=== PATIENT | male | born 1940 | race Hispanic/Latino ===

== ENCOUNTER 2020-04-10 15:19 | Inpatient (IN) | payer MEDICARE ==
[~2020-04-10] VITALS: Ht 157.5 cm; Wt 63.5 kg
[2020-04-10 16:28] LABS: BASOPHILS % (AUTO) 1.1 % (0.0-5.0); EOSINOPHILS % (AUTO) 1.7 % (0.0-8.0); LYMPHOCYTES % (AUTO) 15.1 % (21.0-51.0); MEAN CORPUSCULAR HEMOGLOBIN 20.4 pg (27.0-33.0); MEAN CORPUSCULAR HGB CONC 27.8 g/dL (32.0-36.0); MEAN CORPUSCULAR VOLUME 73.2 fL (79-99); MONOCYTES % (AUTO) 6.7 % (3.0-13.0); NEUTROPHILS % (AUTO) 75.1 % (40.0-77.0); NUCLEATED RED BLOOD CELLS 0.3 % (0.0-0.19); PLATELET COUNT (AUTO) 286 K/uL (130-400); RED BLOOD CELL COUNT(AUTO) 2.65 MIL/uL (4.50-6.20); RED CELL DISTRIBUTION WIDTH 20.2 % (11.0-15.5); WHITE BLOOD COUNT (AUTO) 9.7 K/uL (4.8-10.8)
[2020-04-10 16:37] LABS: CREATININE 0.7 mg/dL (0.5-1.5); POTASSIUM 3.4 mmol/L (3.5-5.1)
[2020-04-10 16:41] LABS: HEMATOCRIT 19.4 % (42-54); INR 0.91 (0.85-1.15); PARTIAL THROMBOPLASTIN TIME 23.2 SEC (26.3-35.5); PROTHROMBIN TIME 9.9 SEC (9.6-11.6)
[2020-04-10 16:42] LABS: ALBUMIN 3.1 g/dL (3.5-5.0); BILIRUBIN,TOTAL 0.3 mg/dL (0.2-1.0); TOTAL PROTEIN, SERUM 7.1 g/dL (6.0-8.3)
[2020-04-10 16:56] LABS: B-TYPE NATRIURETIC PEPTIDE 85 pg/mL (0-100)
[2020-04-10] MEDS ORDERED: PANTOPRAZOLE 40 MG/VIAL ONE (17:12)
[2020-04-10 17:40] LABS: APPEARANCE,URINE Clear (CLEAR); BILIRUBIN,URINE Negative (NEGATIVE); COLOR,URINE Yellow (YELLOW); GLUCOSE, URINE (UA) TRACE mg/dL (NEGATIVE); KETONES,URINE Negative (NEGATIVE); LEUKOCYTE ESTERASE ,URINE Negative (NEGATIVE); NITRATE,URINE Negative (NEGATIVE); OCCULT BLOOD,URINE Negative (NEGATIVE); PROTEIN,URINE Trace mg/dL (NEGATIVE)
[2020-04-10 17:59] LABS: BACTERIA,URINE Rare /HPF (None Seen); RBC,URINE 0-1 /HPF (0-1); WBC,URINE 0-1 /HPF (0-1)
[2020-04-10 18:01] LABS: MUCUS,URINE Few LPF (None Seen); SQUAMOUS EPITHELIAL CELL,UR Few /HPF (0-2)
[2020-04-10 20:00] VITALS: BP 145/71
[2020-04-10] MEDS ORDERED: METF-446 PO (20:17)
[2020-04-10] MEDS ORDERED: ONDANSETRON HCL 4 MG/2 ML VIAL IV PRN (20:30)
[2020-04-10] MEDS ORDERED: ACETAMINOPHEN 325 MG TAB PO PRN ×2 (20:30)
[2020-04-10] MEDS ORDERED: LACTULOSE 20 GM/30 ML UDCUP PO PRN (20:30)
[2020-04-10] MEDS ORDERED: MORPHINE SULFATE 2 MG/ML 1ML SYG IV PRN (20:30)
[2020-04-10] MEDS ORDERED: NITROGLYCERIN 0.4 MG SL TAB SL PRN (20:30)
[2020-04-10] MEDS: SODIUM CHLORIDE 0.9% 1000ML 1,000 ML IV SCH (20:30)
[2020-04-10] MEDS ORDERED: ZOLPIDEM TARTRATE 5 MG TAB PO PRN (20:30)
[2020-04-10] MEDS ORDERED: LIDOCAINE HCL-MPF 1% 2ML VIAL IV PRN (20:45)
[2020-04-10] MEDS ORDERED: POTASSIUM CHLORIDE 10% ELIXIR 20 MEQ/15 ML UDCUP PO PRN (20:45)
[2020-04-10 20:56] LABS: HEMOGLOBIN A1C 6.5 % (4.0-6.0)
[2020-04-10] MEDS: INSULIN HUMULIN R 100 UNIT/ML 3ML SQ SCH (21:00)
[2020-04-10 21:03] LABS: HEMATOCRIT 18.2 % (42-54)
--- NOTE | 2020-04-10 23:57 | NUR ---
PATIENT RECEIVED FROM [facility]LEED/ANEMIA WITH HGB 5.4. PATIENT ARRIVED TO ROOM 1954, AAOX3 WITH STEP-SON AT BEDSIDE. POC DISCUSSED WITH PATIENT AND FAMILY. PATIENT IS AWARE OF PLAN FOR BLOOD TRANSFUSION TODAY. INSTRUCTED ON STRICT BEDREST. CALL DIAZ PLACED WITHIN REACH, BED ALARM ON. MEDICAL-TELE WITH ST [address] AT TIME OF ADMISSION. 1 UNIT OF PRBC INFUSING WITH NO COMPLICATIONS NOTED. WILL CONT TO MONITOR CLOSELY.
[2020-04-11 00:04] VITALS: BP 133/58
[2020-04-11] MEDS ORDERED: ATOR40TA69 PO (00:04)
[2020-04-11] MEDS ORDERED: OMEP40CA13 PO (00:04)
[2020-04-11] MEDS ORDERED: SENN8.6T32 PO (00:04)
[2020-04-11] MEDS ORDERED: AEC81 PO (00:04)
[2020-04-11] MEDS ORDERED: TAMS-1 PO (00:04)
[2020-04-11] MEDS ORDERED: AMLO-96 PO (00:04)
[2020-04-11 03:19] LABS: BASOPHILS % (AUTO) 1.1 % (0.0-5.0); EOSINOPHILS % (AUTO) 2.2 % (0.0-8.0); HEMATOCRIT 22.8 % (42-54); LYMPHOCYTES % (AUTO) 24.7 % (21.0-51.0); MEAN CORPUSCULAR HEMOGLOBIN 21.5 pg (27.0-33.0); MEAN CORPUSCULAR HGB CONC 29.8 g/dL (32.0-36.0); MEAN CORPUSCULAR VOLUME 71.9 fL (79-99); MONOCYTES % (AUTO) 7.9 % (3.0-13.0); NEUTROPHILS % (AUTO) 63.8 % (40.0-77.0); NUCLEATED RED BLOOD CELLS 0.4 % (0.0-0.19); PLATELET COUNT (AUTO) 259 K/uL (130-400); RED BLOOD CELL COUNT(AUTO) 3.17 MIL/uL (4.50-6.20); RED CELL DISTRIBUTION WIDTH 19.3 % (11.0-15.5); WHITE BLOOD COUNT (AUTO) 7.6 K/uL (4.8-10.8)
[2020-04-11] MEDS: PANTOPRAZOLE SODIUM 80 MG in NS 100ML IVP SCH ×2 (03:38→21:42)
--- NOTE | 2020-04-11 04:06 | NUR ---
HGB 6.8 2ND UNIT OF PRBC INITIATED PER ORDERS.
[2020-04-11 04:08] VITALS: BP 132/57
--- NOTE | 2020-04-11 07:00 | NUR ---
2ND. UNIT OF PRBS NOW COMPLETE, NO ADVERSE REACTION NOTED .
[2020-04-11] MEDS: INSULIN HUMULIN R 100 UNIT/ML 3ML SQ SCH ×4 (07:16→21:00)
[2020-04-11 08:31] LABS: HEMATOCRIT 26.9 % (42-54)
[2020-04-11 08:37] VITALS: BP 135/66
[2020-04-11] MEDS ORDERED: PANTOPRAZOLE SODIUM 80 MG in SODIUM CHLORIDE 0.9% 100 ML IV SCH (09:00)
[2020-04-11 12:16] VITALS: BP 140/69
[2020-04-11] MEDS ORDERED: COMPOUND IV MISC 1 EACH IVSOLN MISC PRN (12:30)
--- NOTE | 2020-04-11 12:30 | NUR ---
DR. GARCIA RETURNED CALL. WILL DO EGD IN AM. REQUESTED COVIC TEST.
[2020-04-11 13:26] LABS: % IRON SATURATION 6.1 % (30-44)
[2020-04-11 15:47] VITALS: BP 130/58
--- NOTE | 2020-04-11 16:27 | NUR ---
DCP CM met with pt discussed dc plans. Pt is independent prior to admission, lives at home alone, dusty lives close by. Pt has a cane and provider around 14hrs/wk unsure with time. Denies any other equipments/services. Feels safe to go back home, still drives and visit spouse in [place], dusty able to assist with transportation and needs as necessary. DC plan to home once stable. CM to continue to follow up. Addendum: 04/11/20 at 1629 by TORO OWENS LVN CM Amended: Links added.
--- NOTE | 2020-04-11 17:16 | NUR ---
RT. NARE SWABBED FOR RAPID COVIC TEST. SEND TO LAB.
--- NOTE | 2020-04-11 17:44 | NUR ---
RAPID COVIC TEST JUST NOW REPORTED PRESUMPTIVE NEGATIVE.
--- NOTE | 2020-04-11 17:46 | NUR ---
SPOKE TO SON EARLIER RE: PAUL. STATES HE WILL BE IN LATER TODAY TO SIGN CONSENT HIS FATHER IS VERY HARD OF HEARING AND IS AFRAID HE MAY REFUSE IF HE DOESN'T UNDERSTAND.
[2020-04-11 19:00] VITALS: BP 128/64
--- NOTE | 2020-04-11 19:00 | NUR ---
CONSENT FOR EGD SIGNED BY SON.
--- NOTE | 2020-04-11 20:00 | NUR ---
assessment note patient awake, alert, ox3, no sob, no c/o pain at this time, no so, no c/o pain at this time, no family at bedside, ivf infusing well as ordered, teach patient plan of care , npo post midnite, expected outcome, patient verbalizes understanding via teach back, called form dr. robison office plan for egd tomorrow will be done by dr. lowe, supervisor feed house gabby squires r.n notifed per guidance secretary dinesh maya cna
[2020-04-11 20:22] LABS: HEMATOCRIT 26.2 % (42-54)
[2020-04-11] MEDS: ATORVASTATIN CALCIUM 40 MG TABLET PO SCH (21:39)
[2020-04-11] MEDS: SODIUM CHLORIDE 0.9% 1000ML 1,000 ML IV SCH (21:40)
[2020-04-12] VITALS (22 sets, daily range): BP systolic 102–156; BP diastolic 50–81
[2020-04-12 05:48] LABS: BASOPHILS % (AUTO) 1.2 % (0.0-5.0); CREATININE 0.5 mg/dL (0.5-1.5); EOSINOPHILS % (AUTO) 2.8 % (0.0-8.0); HEMATOCRIT 25.7 % (42-54); LYMPHOCYTES % (AUTO) 20.7 % (21.0-51.0); MEAN CORPUSCULAR HEMOGLOBIN 22.1 pg (27.0-33.0); MEAN CORPUSCULAR HGB CONC 30.4 g/dL (32.0-36.0); MEAN CORPUSCULAR VOLUME 72.8 fL (79-99); MONOCYTES % (AUTO) 8.8 % (3.0-13.0); NEUTROPHILS % (AUTO) 66.1 % (40.0-77.0); NUCLEATED RED BLOOD CELLS 0.3 % (0.0-0.19); PLATELET COUNT (AUTO) 259 K/uL (130-400); RED BLOOD CELL COUNT(AUTO) 3.53 MIL/uL (4.50-6.20); RED CELL DISTRIBUTION WIDTH 19.2 % (11.0-15.5); WHITE BLOOD COUNT (AUTO) 7.4 K/uL (4.8-10.8)
[2020-04-12 05:56] LABS: POTASSIUM 2.7 mmol/L (3.5-5.1)
--- NOTE | 2020-04-12 06:01 | NUR ---
ABNORMAL LAB k+ 2.[address] SAINI TO INFORM PATIENT OF ABNORMAL LAB
--- NOTE | 2020-04-12 06:15 | NUR ---
UPDATE LAB RESULT NO ANSWER FROM DR. SAINI, RE PAGE VIA ANSWERING SERVICE
[2020-04-12] MEDS ORDERED: PHARMACY COMMUNICATION MISC SCH (06:30)
[2020-04-12] MEDS: POTASSIUM CHLORIDE 10MEQ/100ML 100 ML IV PRN ×2 (06:34→09:51)
[2020-04-12] MEDS: INSULIN HUMULIN R 100 UNIT/ML 3ML SQ SCH ×4 (06:50→21:06)
--- NOTE | 2020-04-12 07:30 | NUR ---
DR. ARMSTRONG SPOKE TO MD VIA TELEPHONE REGARDING POTASSIUM 2.7 AND THAT IT WAS BEING COVERED WITH POTASSIUM IV PER POTASSIUM PROTOCOL. DR. ARMSTRONG REPLIED THAT HE WAS STILL GOING TO PERFORM SCHEDULED EGD TODAY.
[2020-04-12] MEDS ORDERED: PROPOFOL 10 MG/ML 20ML VIAL IV ONE ×2 (08:05)
[2020-04-12] MEDS ORDERED: POTASSIUM CHLORIDE 20 MEQ ERTAB PO SCH (08:30)
[2020-04-12] MEDS: MAGNESIUM 2GM PREMIX 50ML 50 ML IV SCH (09:55)
[2020-04-12] MEDS: TAMSULOSIN HCL 0.4 MG CAP.ER.24H PO SCH (10:05)
[2020-04-12] MEDS: IRON SUCROSE COMPLEX 100 MG in SODIUM CHLORIDE 0.9% 50 ML IV SCH (11:55)
--- NOTE | 2020-04-12 12:10 | NUR ---
DR. BILLIE BROWN ROUNDING AT THIS TIME. MD INFORMED OF UPPER GI EGD FINDINGS BY DR. ARMSTRONG THIS MORNING.
[2020-04-12] MEDS: SODIUM CHLORIDE 0.9% 1000ML 1,000 ML IV SCH (12:32)
[2020-04-12] MEDS ORDERED: DIATR MEGLU/DIATRIZOATE SODIUM 30 ML BOTTLE ONE (15:19)
[2020-04-12] MEDS ORDERED: IOHEXOL 350 MG/ML 100ML INFUS..BTL IV ONE (15:20)
[2020-04-12] MEDS: ATORVASTATIN CALCIUM 40 MG TABLET PO SCH (19:33)
--- NOTE | 2020-04-12 20:00 | NUR ---
assessment note patient awake, alert, ox3, no sob,no c/o pain at this time, teach patient plan of care and expected outcome , patient verbalizes understanding via teach back, call tran at reach
[2020-04-13 04:00] VITALS: BP 146/59
[2020-04-13 05:33] LABS: BASOPHILS % (AUTO) 1.1 % (0.0-5.0); EOSINOPHILS % (AUTO) 3.1 % (0.0-8.0); HEMATOCRIT 27.3 % (42-54); LYMPHOCYTES % (AUTO) 19.1 % (21.0-51.0); MEAN CORPUSCULAR HEMOGLOBIN 22.2 pg (27.0-33.0); MONOCYTES % (AUTO) 8.2 % (3.0-13.0); NEUTROPHILS % (AUTO) 68.3 % (40.0-77.0); PLATELET COUNT (AUTO) 269 K/uL (130-400); RED BLOOD CELL COUNT(AUTO) 3.69 MIL/uL (4.50-6.20); RED CELL DISTRIBUTION WIDTH 19.6 % (11.0-15.5); WHITE BLOOD COUNT (AUTO) 8.5 K/uL (4.8-10.8)
[2020-04-13] MEDS: INSULIN HUMULIN R 100 UNIT/ML 3ML SQ SCH ×4 (06:03→20:38)
[2020-04-13] MEDS: SODIUM CHLORIDE 0.9% 1000ML 1,000 ML IV SCH ×2 (06:04→19:38)
[2020-04-13 06:10] LABS: MAGNESIUM 1.8 mg/dL (1.80-2.40); POTASSIUM 3.6 mmol/L (3.5-5.1)
[2020-04-13] MEDS: POTASSIUM CHLORIDE 20 MEQ ERTAB PO PRN ×2 (06:38→09:02)
[2020-04-13] MEDS: MAGNESIUM 2GM PREMIX 50ML 50 ML IV SCH (06:39)
[2020-04-13 08:35] VITALS: BP 145/67
[2020-04-13] MEDS ORDERED: IRON SUCROSE COMPLEX 100 MG in SODIUM CHLORIDE 0.9% 50 ML IV SCH (09:00)
[2020-04-13] MEDS: PANTOPRAZOLE SODIUM 40 MG TABLET.DR PO SCH (09:02)
[2020-04-13] MEDS: TAMSULOSIN HCL 0.4 MG CAP.ER.24H PO SCH (09:02)
[2020-04-13] MEDS: IRON SUCROSE COMPLEX 100 MG in SODIUM CHLORIDE 0.9% 50 ML IV SCH (09:03)
[2020-04-13 11:45] VITALS: BP 130/59
[2020-04-13 17:12] VITALS: BP 135/52
[2020-04-13 20:23] VITALS: BP 136/65
[2020-04-13] MEDS: ATORVASTATIN CALCIUM 40 MG TABLET PO SCH (20:31)
[2020-04-13 23:33] VITALS: BP 146/64
[2020-04-14 03:41] VITALS: BP 130/60
[2020-04-14 05:55] LABS: HEMATOCRIT 27.8 % (42-54)
[2020-04-14] MEDS: INSULIN HUMULIN R 100 UNIT/ML 3ML SQ SCH ×4 (06:11→20:03)
[2020-04-14 06:14] LABS: POTASSIUM 3.8 mmol/L (3.5-5.1)
[2020-04-14] MEDS: POTASSIUM CHLORIDE 20 MEQ ERTAB PO PRN ×2 (06:36→09:44)
[2020-04-14 08:28] VITALS: BP 134/55
[2020-04-14] MEDS: TAMSULOSIN HCL 0.4 MG CAP.ER.24H PO SCH (10:05)
[2020-04-14] MEDS: PANTOPRAZOLE SODIUM 40 MG TABLET.DR PO SCH (10:05)
[2020-04-14] MEDS: IRON SUCROSE COMPLEX 100 MG in SODIUM CHLORIDE 0.9% 50 ML IV SCH (11:22)
[2020-04-14 12:30] VITALS: BP 125/64
[2020-04-14 16:07] VITALS: BP 139/61
[2020-04-14 20:01] VITALS: BP 136/56
[2020-04-14] MEDS: ATORVASTATIN CALCIUM 40 MG TABLET PO SCH (20:02)
[2020-04-14 23:52] VITALS: BP 132/56
[2020-04-15] MEDS: SODIUM CHLORIDE 0.9% 1000ML 1,000 ML IV SCH (00:30)
[2020-04-15 03:58] VITALS: BP 141/65
[2020-04-15] MEDS: INSULIN HUMULIN R 100 UNIT/ML 3ML SQ SCH ×2 (05:20→12:05)
[2020-04-15 05:53] LABS: HEMATOCRIT 29.1 % (42-54)
[2020-04-15 06:04] LABS: CREATININE 0.6 mg/dL (0.5-1.5); MAGNESIUM 1.9 mg/dL (1.80-2.40)
[2020-04-15] MEDS: MAGNESIUM 2GM PREMIX 50ML 50 ML IV SCH (06:22)
[2020-04-15 08:00] VITALS: BP 140/72
[2020-04-15] MEDS: PANTOPRAZOLE SODIUM 40 MG TABLET.DR PO SCH (08:36)
[2020-04-15] MEDS: TAMSULOSIN HCL 0.4 MG CAP.ER.24H PO SCH (08:36)
[2020-04-15] MEDS: IRON SUCROSE COMPLEX 100 MG in SODIUM CHLORIDE 0.9% 50 ML IV SCH (10:36)
[2020-04-15 12:00] VITALS: BP 128/56
[2020-04-15] MEDS ORDERED: POLY17PO4 PO (13:28)
[2020-04-15] MEDS ORDERED: FERR325T22 PO (13:28)
--- NOTE | 2020-04-15 15:45 | NUR ---
DISCHARGE DISCHARGE INSTRUCTIONS GIVEN TO PATIENTS REMI MESSINA OVER THE PHONE. PRESCRIPTIONS SENT TO [facility]. IV REMOVED. TELEPAK REMOVED.
== END 2020-04-15 15:45 | disposition home or self-care (01) | DRG 375 ==
LOC: EDH 15:19 → EDHIP 17:24 → 3AH 20:10 → 3DH 04-15 06:19
PROVIDERS: ADMIT Hospitalist; ATTEND Hospitalist
PROC: 30233N1 Transfusion of Nonautologous Red Blood Cells into Peripheral Vein, Percutaneous Approach (ICD-10-PCS; 2020-04-10)
PROC: 0DB68ZX Excision of Stomach, Via Natural or Artificial Opening Endoscopic, Diagnostic (ICD-10-PCS; principal; 2020-04-12)
DX: C16.9 Malignant neoplasm of stomach, unspecified (principal); K92.2 Gastrointestinal hemorrhage, unspecified; D50.0 Iron deficiency anemia secondary to blood loss (chronic); Z20.828 Contact with and (suspected) exposure to other viral communicable diseases; K31.9 Disease of stomach and duodenum, unspecified; K21.9 Gastro-esophageal reflux disease without esophagitis; E03.9 Hypothyroidism, unspecified; I10 Essential (primary) hypertension; E87.6 Hypokalemia; K31.7 Polyp of stomach and duodenum; E11.9 Type 2 diabetes mellitus without complications; D49.0 Neoplasm of unspecified behavior of digestive system; R91.8 Other nonspecific abnormal finding of lung field; Z95.0 Presence of cardiac pacemaker
CPT/HCPCS: 36415; 36430; 43239; 71045; 71250; 74160; 80048; 80053; 81001; 82270; 82550; 82948; 83036; 83540; 83550; 83735; 83880; 84132; 84484; 85014; 85018; 85025; 85610; 85730; 86850; 86900; 86901; 86923; 87426; 93005; 99291; C9113; G0378; J1756; J1815; J2704; J3475; J3490; P9016; Q9963; Q9967